=== PATIENT | male | born 1995 | race African-American/Black ===

== ENCOUNTER → 2024-10-08 13:03 | Outpatient (CLI) | payer OTHER, SELFPAY ==
--- NOTE | 2024-10-08 13:14 | DI.RAD.S_ITS ---
PROCEDURE: XR HAND LT 2V INDICATIONS: RT HAND PAIN TECHNIQUE: 2 views of the hand(s) acquired. COMPARISON: None. FINDINGS: Bones: No fractures or dislocations. Carpal bones are normally aligned. No suspicious bony lesions. Soft tissues: No suspicious soft tissue calcifications. IMPRESSION: No acute bony abnormality. Dictated by: Guillermo Alejandro M.D. on 10/10/2024 at 10:25 Approved by: Guillermo Alejandro M.D. on 10/10/2024 at 10:25
--- NOTE | 2024-10-08 13:14 | DI.RAD.S_ITS ---
PROCEDURE: XR HAND RT 2V INDICATIONS: LT AND RT HAND PAIN TECHNIQUE: 2 views of the hand(s) acquired. COMPARISON: None. FINDINGS: Bones: No fractures or dislocations. Carpal bones are normally aligned. No suspicious bony lesions. Soft tissues: No suspicious soft tissue calcifications. IMPRESSION: No acute bony abnormality. Dictated by: Guillermo Alejandro M.D. on 10/10/2024 at 10:25 Approved by: Guillermo Alejandro M.D. on 10/10/2024 at 10:26
== END ==
PROVIDERS: Referring Provider Chiropractor; Visit Provider Chiropractor
DX: M13.841 Other specified arthritis, right hand (principal); M13.842 Other specified arthritis, left hand; M06.9 Rheumatoid arthritis, unspecified
CPT/HCPCS: 36415; 73120; 86430